=== PATIENT | male | born 1960 | race Caucasian/White ===

== ENCOUNTER 2020-11-09 01:59 | Emergency (ER) | payer OTHER ==
[~2020-11-09] VITALS: Ht 190.5 cm; Wt 90.7 kg
--- NOTE | 2020-11-09 02:00 | NUR ---
Dr. Sanders at bedside for MSE
--- NOTE | 2020-11-09 02:00 | NUR ---
Patient BIB [facility] via gurney. c/o chest pressure s/p narcan administration where he resides. Per EMS patient was never unresponsive. Patient admitted that he injected / smoked meth at his living arrangement and was given a shot of narcan. Patient presented to ED. awake, alert, verbally responsive and speaking in full sentences. Patient breathing even and unlabored. denies any other pain or discomfort at this time. NAD. noted. VSS. bed in lowest position, s/r up x2, call light within reach
[2020-11-09] MEDS ORDERED: NALOXONE HCL 0.4 MG/ML AMPUL IM ONE (02:45)
[2020-11-09 02:52] LABS: *AMPHETAMINE, URINE POSITIVE (NEGATIVE); *CANNABINOID, URINE POSITIVE (NEGATIVE); *COCCAINE, URINE NEGATIVE (NEGATIVE); *OPIATE, URINE POSITIVE (NEGATIVE); *PHENCYCLIDINE SCREEN,URINE NEGATIVE (NEGATIVE)
[2020-11-09] MEDS ORDERED: NALOXONE HCL 0.4 MG/ML AMPUL ONE (02:53)
--- NOTE | 2020-11-09 04:15 | NUR ---
Patient given written and verbal discharge instructions. Patient verbalizes understanding of instructions. Patient is ambulatory with steady gait. Refuses offer of intermediate placement. Patient given list of available shelters in surrounding area. Patient declines resources and transportation arrangement at this time and states that "I will figure it out". all belongings given to patient. provided extra pants to patient per patient request.
[2020-11-09 04:32] VITALS: BP 129/65
== END 2020-11-09 04:15 | disposition home or self-care (01) ==
LOC: ER 02:02 → EDBD 02:02 → ER 04:15
DX: R07.89 Other chest pain (principal); Z85.028 Personal history of other malignant neoplasm of stomach; Z59.0 Homelessness; F11.10 Opioid abuse, uncomplicated; R94.31 Abnormal electrocardiogram [ECG] [EKG]; R00.0 Tachycardia, unspecified
CPT/HCPCS: 36415; 80307; 84484; 93005; 96372; 99284; J2310; 70030-TC; A4663